=== PATIENT | male | born 1990 | race Caucasian/White ===

== ENCOUNTER 2017-08-21 15:48 | Emergency (ER) | payer MEDICAID ==
[~2017-08-21] VITALS: Ht 188 cm; Wt 93.0 kg
[2017-08-21] MEDS ORDERED: LIDOCAINE HCL/PF 1% 30 ML SDV ONE (16:14)
[2017-08-21] MEDS ORDERED: TDAP [DIPH/PERTUSSIS/TET] 0.5 ML VIAL IM ONE ×2 (16:19→16:30)
[2017-08-21] MEDS ORDERED: ACETAMINOPHEN 325 MG TABLET ONE (16:19)
[2017-08-21] MEDS ORDERED: LIDOCAINE /MPF 1% VIAL 5 ML VIAL TP ONE (16:30)
[2017-08-21] MEDS ORDERED: ACETAMINOPHEN 325 MG TABLET PO ONE (16:30)
[2017-08-21 18:06] VITALS: BP 150/73
== END 2017-08-21 18:06 | disposition home or self-care (01) ==
LOC: ER 15:50
DX: S52.122A Displaced fracture of head of left radius, initial encounter for closed fracture (principal); S01.81XA Laceration without foreign body of other part of head, initial encounter; S09.8XXA Other specified injuries of head, initial encounter; W01.0XXA Fall on same level from slipping, tripping and stumbling without subsequent striking against object, initial encounter; Y93.67 Activity, basketball; Y92.89 Other specified places as the place of occurrence of the external cause; Y99.8 Other external cause status; I47.1 Supraventricular tachycardia; F32.9 Major depressive disorder, single episode, unspecified; F41.9 Anxiety disorder, unspecified
CPT/HCPCS: 12011; 29105; 73080; 90471; 90715; 99284; A4606; A6402; J3490; Z7610

== ENCOUNTER 2017-08-27 11:26 | Emergency (ER) | payer MEDICAID, OTHER | END 2017-08-27 15:40 | disposition home or self-care (01) | DX: S01.81XD Laceration without foreign body of other part of head, subsequent encounter (principal); F32.9 Major depressive disorder, single episode, unspecified; F41.9 Anxiety disorder, unspecified; I47.1 Supraventricular tachycardia; X58.XXXD Exposure to other specified factors, subsequent encounter ==

== ENCOUNTER 2018-08-03 19:43 | Emergency (ER) | payer OTHER ==
[~2018-08-03] VITALS: Ht 188 cm; Wt 102.1 kg
[2018-08-03 20:16] VITALS: BP 135/70
--- NOTE | 2018-08-03 21:02 | NUR ---
CALLED OFFICE OF DR KATE LANE FOR CONSULT REGARDING THIS PATIENT
== END 2018-08-03 22:57 | disposition home or self-care (01) ==
LOC: ER 19:44
DX: R20.2 Paresthesia of skin (principal); G25.0 Essential tremor; G25.81 Restless legs syndrome; F32.9 Major depressive disorder, single episode, unspecified; F41.9 Anxiety disorder, unspecified; I47.1 Supraventricular tachycardia
CPT/HCPCS: 72110-TC